=== PATIENT | male | born 1960 | race Caucasian/White ===

== ENCOUNTER 2018-08-15 05:18 | Inpatient (IN) | payer SELFPAY ==
[~2018-08-15] VITALS: Ht 167.6 cm; Wt 76.2 kg
[2018-08-15] MEDS ORDERED: ASPIRIN 81MG TABLET PO ONE (06:15)
[2018-08-15] MEDS: NITROGLYCERIN 0.4MG TABLET SL SL PRN ×3 (06:33→07:41)
[2018-08-15 06:35] LABS: BASOPHILS % 0.5 % (0.0-2.0); EOSINOPHILS % 0.1 % (0.0-5.0); HEMATOCRIT. 42.5 % (42.0-52.0); HEMOGLOBIN. 14.7 g/dL (14.0-18.0); LYMPHOCYTES % 15.8 % (20.0-50.0); MEAN CORPUSCULAR HEMOGLOBIN 30.9 pg (28.0-32.0); MEAN CORPUSCULAR VOLUME 89.1 fL (80.0-94.0); MEAN PLATELET VOLUME 7.3 fl (7.4-10.4); MONOCYTES % 6.3 % (2.0-8.0); NEUTROPHILS % 77.3 % (40.0-76.0); PLATELET 235 x1000/uL (130-400); RED BLOOD CELL COUNT 4.77 mill/uL (4.7-6.1); RED CELL DISTRIBUTION WIDTH 13.4 % (11.6-14.6)
[2018-08-15 06:46] LABS: CHLORIDE 103 mEq/L (98-107)
[2018-08-15 06:50] LABS: ETHANOL BLOOD < 10 mg/dL
[2018-08-15 06:55] LABS: CREATINE KINASE 161 IU/L (39-308)
[2018-08-15] MEDS ORDERED: POTASSIUM CHLORIDE 20MEQ TABLET SR PO ONE (07:30)
[2018-08-15] MEDS ORDERED: MORPHINE SULFATE 2 MG/ML CPJ (NOT FOR IM USE) IV ONE (08:00)
[2018-08-15] MEDS ORDERED: MAGNESIUM/ALUMINUM HYDROXIDE/SIMETHICONE 30ML UDC PO ONE (08:00)
[2018-08-15] MEDS ORDERED: IPRATROPIUM/ALBUTEROL 0.5-3(2.5)MG/3ML NEB INH PRN (10:15)
[2018-08-15] MEDS ORDERED: GUAIFENESIN 200MG/10ML SUGAR FREE UDC PO PRN (10:15)
[2018-08-15] MEDS ORDERED: MAGNESIUM/ALUMINUM HYDROXIDE/SIMETHICONE 30ML UDC PO PRN (10:15)
[2018-08-15] MEDS ORDERED: LORAZEPAM 0.5MG TABLET PO PRN (10:15)
[2018-08-15] MEDS ORDERED: DOCUSATE SODIUM 100MG CAPSULE PO PRN (10:15)
[2018-08-15] MEDS ORDERED: DIPHENHYDRAMINE 50MG/ML VIAL IV PRN (10:15)
[2018-08-15] MEDS ORDERED: ONDANSETRON HCL 4MG/2ML INJ IV PRN (10:15)
[2018-08-15] MEDS ORDERED: NA PHOS,M-B/NA PHOS,DI-BA ENEMA 118ML PR PRN (10:15)
[2018-08-15] MEDS ORDERED: NITROGLYCERIN 0.4MG TABLET SL SL PRN (10:15)
[2018-08-15] MEDS ORDERED: CLONIDINE 0.1MG TABLET PO PRN (10:15)
[2018-08-15] MEDS ORDERED: ACETAMINOPHEN 325MG TABLET PO PRN (10:15)
[2018-08-15 11:00] VITALS: BP 133/82
[2018-08-15] MEDS ORDERED: ENOXAPARIN 40MG/0.4ML SYR SUBCUT SCH (11:00)
[2018-08-15] MEDS: METOPROLOL TARTRATE 25MG TABLET PO SCH ×2 (11:00→20:54)
[2018-08-15] MEDS: SUCRALFATE 1 G/10 ML UDC PO SCH ×3 (11:59→20:54)
[2018-08-15 12:00] VITALS: BP 133/83
[2018-08-15] MEDS: FAMOTIDINE 20MG TABLET PO SCH ×2 (12:00→20:54)
[2018-08-15 16:00] VITALS: BP 144/98
[2018-08-15 16:45] LABS: CREATINE KINASE 157 IU/L (39-308)
[2018-08-15 16:46] LABS: CREATINE KINASE MB FRACTION < 1.0 ng/mL (0.5-3.6)
[2018-08-15 20:00] VITALS: BP 162/90
[2018-08-15] MEDS ORDERED: ZOLPIDEM TARTRATE 5MG TABLET PO PRN (21:00)
[2018-08-15 23:22] VITALS: BP 148/84
[2018-08-16 01:21] LABS: CREATINE KINASE 171 IU/L (39-308)
[2018-08-16 01:22] LABS: CREATINE KINASE MB FRACTION < 1.0 ng/mL (0.5-3.6)
[2018-08-16 04:00] VITALS: BP 140/78
[2018-08-16] MEDS: SUCRALFATE 1 G/10 ML UDC PO SCH (06:45)
[2018-08-16 08:00] VITALS: BP 155/89
[2018-08-16] MEDS: METOPROLOL TARTRATE 25MG TABLET PO SCH (09:00)
[2018-08-16] MEDS ORDERED: ASPIRIN 325MG EC TABLET PO SCH (09:00)
[2018-08-16 10:02] VITALS: BP 137/80
[2018-08-16 10:36] VITALS: BP 137/80
[2018-08-16] MEDS: FAMOTIDINE 20MG TABLET PO SCH (10:54)
[2018-08-16 11:43] LABS: OPIATES URINE SCREEN NEGATIVE (NEGATIVE)
[2018-08-16 11:44] LABS: *AMPHETAMINES SCREEN URINE NEGATIVE (NEGATIVE); *BARBITURATES SCREEN URINE NEGATIVE (NEGATIVE); *BENZODIAZEPINES SCREEN URINE NEGATIVE (NEGATIVE); *COCAINE SCREEN URINE NEGATIVE (NEGATIVE); CANNABINOID URINE SCREEN NEGATIVE (NEGATIVE); PHENCYCLIDINE URINE SCREEN NEGATIVE (NEGATIVE)
[2018-08-16 11:45] LABS: METHADONE URINE SCREEN NEGATIVE (NEGATIVE)
== END 2018-08-16 11:15 | disposition home or self-care (01) | DRG 203 ==
LOC: ER 05:18 → 6WST 07:45 → EDBEDREQ 07:48 → ENRESERV 10:17
PROVIDERS: ADMIT Internal Medicine; ATTEND Internal Medicine
DX: R07.89 Other chest pain (principal); E83.52 Hypercalcemia; I10 Essential (primary) hypertension; E87.6 Hypokalemia
CPT/HCPCS: 36415; 71045; 80053; 80061; 80305; 82550; 82553; 83036; 83735; 83880; 84484; 85025; 93005; 93970; 96374; 99285; G0482; J1650; J2270